=== PATIENT | male | born 1975 | race Caucasian/White ===

== ENCOUNTER → 2018-07-08 | Outpatient (CLI) | payer OTHER | LOC: M.RAD 14:13 | DX: M25.511 Pain in right shoulder (principal); G89.29 Other chronic pain; R05 Cough ==

== ENCOUNTER → 2018-12-03 | Outpatient (CLI) | payer OTHER | LOC: M.ULTRA 10:02 | DX: I10 Essential (primary) hypertension (principal); K21.9 Gastro-esophageal reflux disease without esophagitis ==

== ENCOUNTER → 2019-07-22 | Outpatient (CLI) | payer OTHER | LOC: M.RAD 10:30 | DX: M19.041 Primary osteoarthritis, right hand (principal) ==